=== PATIENT | female | born 1995 | race Two or more races ===

== ENCOUNTER 2019-05-19 15:58 | Emergency (ER) | payer OTHER ==
[~2019-05-19] VITALS: Ht 165.1 cm; Wt 76.2 kg
[~2019-05-19 15:58] MED LIST: KEFLEX500 MG PO
== END 2019-05-19 20:37 | disposition home or self-care (01) ==
LOC: ER 15:58
DX: O21.0 Mild hyperemesis gravidarum (principal); O98.511 Other viral diseases complicating pregnancy, first trimester; B34.9 Viral infection, unspecified; Z34.01 Encounter for supervision of normal first pregnancy, first trimester

== ENCOUNTER 2019-10-18 16:00 | Inpatient (IN) | payer OTHER ==
[~2019-10-18] VITALS: Ht 165.1 cm; Wt 88.9 kg
[2019-11-17] MEDS ORDERED: PRENATAL CAPLE1 EAC1 PO (09:09)
== END 2019-11-19 14:27 | disposition home or self-care (01) | DRG 807 ==
LOC: OB/GYN 11-17 08:22 → LDR 11-17 08:22 → OB/GYN 11-17 14:18
PROVIDERS: ADMIT Obstetrics & Gynecology
PROC: 10E0XZZ Delivery of Products of Conception, External Approach (ICD-10-PCS; principal; 2019-11-19)
PROC: 3E033VJ Introduction of Other Hormone into Peripheral Vein, Percutaneous Approach (ICD-10-PCS; 2019-11-19)
PROC: 4A1HXFZ Monitoring of Products of Conception, Cardiac Rhythm, External Approach (ICD-10-PCS; 2019-11-19)
DX: O24.429 Gestational diabetes mellitus in childbirth, unspecified control (principal); Z37.0 Single live birth; O69.81X0 Labor and delivery complicated by cord around neck, without compression, not applicable or unspecified; O70.1 Second degree perineal laceration during delivery; Z3A.39 39 weeks gestation of pregnancy